=== PATIENT | female | born 1960 | race Hispanic/Latino ===

== ENCOUNTER 2016-10-04 17:48 | Emergency (ER) | payer OTHER ==
[2016-10-04 18:03] VITALS: BP 136/90; PULSE 79; RESP 16; TEMP 97.9; O2SAT 98; BMI 35.3
[2016-10-04 18:21] LABS: ADD MANUAL DIFF? NO
[2016-10-04 18:29] LABS: BASO # 0.03 K/mm3 (0.0-2.0); BASO % 0.5 % (0.0-3.0); EOS # 0.3 (0.0-0.7); EOS % 4.7 % (1.5-5.0); GRAN # 2.47 (1.4-6.5); GRAN % 41.3 % (50.0-68.0); HEMATOCRIT 42.2 % (36.0-48.0); LYMPH # 2.5 (1.2-3.4); LYMPH % 41.8 % (22.0-35.0); MEAN CELL VOLUME 84.9 fL (80.0-105.0); MEAN CORPUSCULAR HGB CONC 35.3 g/dl (31.0-37.0); MEAN PLATELET VOLUME 10.5 fl (7.0-11.0); MONO # 0.7 (0.1-0.6); MONO % 11.7 % (1.0-6.0); PLATELET COUNT 243 10^3/uL (120.0-450.0); RED CELL DISTRIBUTION WIDTH 12.5 % (11.5-14.5)
[2016-10-04 18:34] LABS: ALB/GLOB RATIO 1.3 (1.1-1.8); ALKALINE PHOSPHATASE 79 U/L (38-133); ALT/SGPT 150 U/L (7-56); AST/SGOT 77 U/L (15-39); BILIRUBIN,TOTAL 1.3 mg/dL (0.2-1.3); BLOOD UREA NITROGEN 17 mg/dL (7-21); CALCIUM 10.3 mg/dL (8.4-10.5); CARBON DIOXIDE 30 mmol/L (21-33); CHLORIDE 99 mmol/L (98-107); GFR AFRICAN-AMERICAN > 60; GLUCOSE,RANDOM 106 mg/dL (70-110); POTASSIUM 3.6 mmol/L (3.6-5.0); SODIUM 141 mmol/L (132-148); TOTAL PROTEIN 8.6 g/dL (5.8-8.3)
--- NOTE | 2016-10-04 18:36 | ED PDOC ---
Arrival/HPI - General Historian: Patient - History of Present Illness Time/Duration: > month Symptom Onset: Gradual Symptom Course: Unchanged Quality: Aching Severity Level: 5 Activities at Onset: Rest Context: Home - General Chief Complaint: Back Pain Time Seen by Provider: 10/04/16 18:02 - History of Present Illness Narrative History of Present Illness (Text): 10/04/16 18:31 This is a 56Y F with PMH HTN, HLD, and asthma here for R sided mid-back pain x 1 month. The patient saw her PMD for this pain a few weeks ago. She was given Tramadol and Soma without any relief. The patient reports the Soma makes her feel "loopy" so she takes it sparingly. The pain has not been getting better. It is worse with movement and does not radiate. She denies any trauma, abdominal pain, n/v/d, CP, SOB, numbness/tingling, dysuria or hematuria. Patient decided to come to ED because she was worried because the pain has not gone away. She report she is able to still play soft ball regardless of the pain. She also said she has been very stressed out this past year because her brother committed suicide last year and her sister is now having medical problems as well. She has been depressed but denies suicidal or homicidal ideation. (Rebecca Franks) Past Medical History - Provider Review Nursing Documentation Reviewed: Yes - Past History Past History: Non-Contributing - Infectious Disease Hx of Infectious Diseases: None - Tetanus Immunization Tetanus Immunization: Unknown - Reproductive Menopause: Yes - Cardiac Hx Cardiac Disorders: Yes Hx Hypertension: Yes Other/Comment: Cardiac Cath - Pulmonary Hx Respiratory Disorders: Yes Hx Asthma: Yes Hx Tuberculosis: Yes (1985) - Neurological Hx Neurological Disorder: No - HEENT Hx HEENT Disorder: No - Renal Hx Renal Disorder: No - Endocrine/Metabolic Hx Endocrine Disorders: No - Hematological/Oncological Hx Blood Disorders: No - Integumentary Hx Dermatological Disorder: No - Musculoskeletal/Rheumatological Hx Musculoskeletal Disorders: Yes Hx Back Pain: Yes - Gastrointestinal Hx Gastrointestinal Disorders: Yes Hx Gastroesophageal Reflux: Yes Hx Irritable Bowel: Yes - Genitourinary/Gynecological Hx Genitourinary Disorders: No - Psychiatric Hx Psychophysiologic Disorder: No Hx Substance Use: Yes (QUIT 26 YEARS AGO) - Past Surgical History Past Surgical History: No Previous - Surgical History Hx Musculoskeletal Surgery: Yes (right elbow) Other/Comment: WISDOM TEETH EXTRACTION - Anesthesia Hx Anesthesia: No Hx Anesthesia Reactions: Yes (NAUSEA, HALLUCINATIONS) Hx Malignant Hyperthermia: No - Suicidal Assessment Feels Threatened In Home Enviroment: No Family/Social History - Physician Review Nursing Documentation Reviewed: Yes Family/Social History: CVA/TIA Smoking Status: Former Smoker Hx Alcohol Use: Yes (QUIT 26 YEARS AGO) Hx Substance Use: Yes (QUIT 26 YEARS AGO) Allergies/Home Meds Allergies/Adverse Reactions: Allergies naproxen Allergy (Verified 10/04/16 18:06) ANGIOEDEMA BANANAS Allergy (Uncoded 10/04/16 18:06) PAIN Home Medications: Home Meds Medication Instructions Recorded Confirmed Furosemide [Lasix] 40 mg PO DAILY 11/05/14 10/04/16 Losartan/Hydrochlorothiazide 1 tab PO DAILY 03/26/16 10/04/16 [Losartan-Hctz 50-12.5 mg Tab] [id number] Ethyl Esters 1 GM 1 gm PO BID 03/26/16 10/04/16 [Lovaza] Review of Systems - Physician Review All systems were reviewed & negative as marked: Yes - Review of Systems Constitutional: Normal. absent: Fatigue, Fevers, Night Sweats Respiratory: Normal. absent: SOB, Cough Cardiovascular: Normal. absent: Chest Pain, Palpitations Gastrointestinal: Normal. absent: Abdominal Pain, Constipation, Diarrhea, Nausea, Vomiting Genitourinary Female: Normal. absent: Dysuria, Frequency Musculoskeletal: Myalgias Skin: Normal. absent: Rash, Pruritis Neurological: Normal. absent: Headache, Dizziness Endocrine: Normal. absent: Diaphoresis Hemo/Lymphatic: Normal. absent: Adenopathy, Easy Bleeding Psychiatric: Depression. absent: Anxiety, Suicidal Ideation Physical Exam Vital Signs Reviewed: Yes Temperature: Afebrile Blood Pressure: Normal Pulse: Regular Respiratory Rate: Normal Appearance: Positive for: Well-Appearing, Non-Toxic, Comfortable Pain Distress: None Mental Status: Positive for: Alert and Oriented X 3 - Systems Exam Head: Present: Atraumatic, Normocephalic Mouth: Present: Moist Mucous Membranes Neck: Present: Normal Range of Motion Respiratory/Chest: Present: Clear to Auscultation, Good Air Exchange. No: Respiratory Distress, Accessory Muscle Use Cardiovascular: Present: Regular Rate and Rhythm, Normal S1, S2. No: Murmurs Abdomen: Present: Normal Bowel Sounds. No: Tenderness, Distention, Peritoneal Signs Back: Present: Normal Inspection Upper Extremity: Present: Normal Inspection. No: Cyanosis, Edema Lower Extremity: Present: Normal Inspection, Tenderness (R lateral midthoracic region). No: Edema Neurological: Present: GCS=15, CN II-XII Intact, Speech Normal Skin: Present: Warm, Dry, Normal Color. No: Rashes Psychiatric: Present: Alert, Oriented x 3, Normal Insight, Normal Concentration Vital Signs Temp Pulse Resp BP Pulse Ox 10/04/16 18:02 97.9 F 79 16 136/90 98 Medical Decision Making Re-evaluation Time: 20:04 - Lab Interpretations I have reviewed the lab results: Yes Interpretation: Abnormal lab values (elevated LFTs) - RAD Interpretation Fitness Floor Attendant: ED Physician ED Course and Treatment: 10/04/16 18:39 Impression: This is a 56Y F with PMH HTN, HLD, and asthma here for R sided mid-back pain x 1 month. Plan: -- CBC, CMP, U/A -- R rib XR and Chest XR -- Reassess Prior Visits: Notes and results from previous visits were reviewed. Progress Note: Patient noted to have transaminitis. She has had this in the past and is aware of her elevated enzymes and was supposed to get an ultrasound of her liver, but never got around to it. I suggest that she follows up with her PMD to repeat her lab values. Discharge Instructions: Re-evaluation. Patient feels better. Discussed results and plan with patient who expresses understanding. All questions answered and there is agreement with the plan to discharge home with instructions. Patient stable for discharge. Return if symptoms persist or worsen. (Rebecca Franks) 10/04/16 20:05 Seen and examined with the resident. Our history and physical exam reveals a woman who complains of approximately a one-month history of right-sided middle back pain. She denies any injury or trauma. She's been seen by her PMD and given prescription for Ultram and muscle relaxers but is no better. No dysuria frequency urgency or hematuria. No abdominal pain nausea vomiting or diarrhea. Her exam has some point tenderness in the right posterior ribs. No rashes. ( Remi Sanchez) - Lab Interpretations Lab Results: 10/04/16 18:16 10/04/16 18:16 Lab Results 10/04/16 18:16: Urine Color Yellow, Urine Appearance Clear, Urine pH 7.0, Ur Specific [place] 1.010, Urine Protein Negative, Urine Glucose (UA) Negative, Urine Ketones Negative, Urine Blood Negative, Urine Nitrate Negative, Urine Bilirubin Negative, Urine Urobilinogen 0.2, Ur Leukocyte Esterase Negative 10/04/16 18:16: Sodium 141, Potassium 3.6, Chloride 99, Carbon Dioxide 30, Anion Gap 16, BUN 17, Creatinine 0.8, Est GFR ( Amer) > 60, Est GFR (Non- Af Amer) > 60, Random Glucose 106, Calcium 10.3, Total Bilirubin 1.3, AST 77 H, ALT 150 H, Alkaline Phosphatase 79, Total Protein 8.6 H, Albumin 4.8, Globulin 3.8, Albumin/Globulin Ratio 1.3 10/04/16 18:16: WBC 6.0 D, RBC 4.97, Hgb 14.9, Hct 42.2, MCV 84.9, MCH 30.0, MCHC 35.3, RDW 12.5, Plt Count 243, MPV 10.5, Gran % 41.3 L, Lymph % (Auto) 41.8 H, [place] % (Auto) 11.7 H, Eos % (Auto) 4.7, Baso % (Auto) 0.5, Gran # 2.47, Lymph # 2.5, [place] # 0.7 H, Eos # 0.3, Baso # 0.03 - RAD Interpretation Narrative RAD Interpretations (Text): 10/04/16 20:04 R rib XR showed no evidence of rib fracture. CXR showed no active disease. ( Rebecca Franks) Radiology Orders: 10/04/16 18:17 RIBS RIGHT & PA CHEST [RAD] Stat Disposition/Present on Arrival - Present on Arrival Any Indicators Present on Arrival: No History of DVT/PE: No History of Uncontrolled Diabetes: No Urinary Catheter: No History of Decub. Ulcer: No History Surgical Site Infection Following: None - Disposition Have Diagnosis and Disposition been Completed?: Yes Disposition Time: 19:50 Patient Plan: Discharge - Disposition Diagnosis: Costochondritis Disposition: HOME/ ROUTINE Patient Problems: Current Active Problems Problem Status Onset Costochondritis Acute Condition: GOOD Discharge Instructions (ExitCare): Costochondritis (ED) Print Language: LAO Additional Instructions: Ms. Clemens, thank you for letting us take care of you today. Your provider was Dr. Franks You were treated for back pain. The emergency medical care you received today was directed at your acute symptoms. If you were prescribed any medication, please fill it and take as directed. It may take several days for your symptoms to resolve. Return to the Emergency Department if your symptoms worsen, do not improve, or if you have any other problems. Please contact your doctor or call one of the physicians/clinics you have been referred to that are listed on the Patient Visit Information form that is included in your discharge packet. Bring any paperwork you were given at discharge with you along with any medications you are taking to your follow up visit. Our treatment cannot replace ongoing medical care by a primary care provider (PCP) outside of the emergency department. Thank you for allowing the [facility] team to be part of your care today. If you had an X-Ray or CT scan: A Radiologist will review the ED reading if any change in treatment is needed we will contact you. If you had a blood, urine, or wound culture: It will take several days for the results, if any change in treatment is needed we will contact you. Please follow up with Dr. Pratt for elevated liver enzymes. Prescriptions: Chlorzoxazone [Lorzone] 375 mg PO TID PRN #15 tablet PRN Reason: Pain, Moderate (4-7) Referrals: Charles Pratt MD [Primary Care Provider] - Follow up with primary
[2016-10-04 18:42] LABS: URINE BILIRUBIN NEGATIVE (NEGATIVE); URINE BLOOD NEGATIVE (NEGATIVE); URINE GLUCOSE (UA) NEGATIVE (NEGATIVE); URINE KETONE NEGATIVE (NEGATIVE); URINE LEUKOCYTE ESTERASE NEGATIVE Leu/uL (NEGATIVE); URINE PROTEIN NEGATIVE mg/dL (<30 mg/dL); URINE UROBILINOGEN 0.2 E.U./dL (<1 E.U./dL)
[2016-10-04 18:59] LABS: URINE APPEARANCE CLEAR (CLEAR); URINE COLOR YELLOW (YELLOW)
--- NOTE | 2016-10-05 08:45 | RAD ---
PROCEDURE: Radiographs of the Chest and Right Ribs. HISTORY: R sided pain COMPARISON: Chest x-ray performed 03/04/15 TECHNIQUE: Frontal radiograph of the chest and multiple oblique radiographs of the right ribs were obtained. FINDINGS: Examination limited by habitus. RIGHT RIBS: No acute displaced fracture identified. LUNGS: No focal consolidation. 3 mm right upper lobe nodular density. Please note that chest x-ray has limited sensitivity for the detection of pulmonary masses. PLEURA: No significant pleural effusion. No definite pneumothorax. CARDIOVASCULAR: Heart size appears within normal limits. OTHER FINDINGS: None. IMPRESSION: 3 mm right upper lobe nodular density, possibly granuloma. No appreciable displaced right rib fracture.
== END 2016-10-04 20:03 | disposition home or self-care (01) ==
LOC: ED 17:48
DX: M94.0 Chondrocostal junction syndrome [Tietze] (principal); I10 Essential (primary) hypertension; Z87.891 Personal history of nicotine dependence

== ENCOUNTER 2016-10-08 17:57 | Emergency (ER) | payer OTHER ==
[2016-10-08 18:15] VITALS: RESP 18; TEMP 98.2; O2SAT 98; BMI 34.9
[2016-10-08] MEDS ORDERED: Sodium Chloride 0.9% 1,000 ML IV STA (18:24)
[2016-10-08] MEDS ORDERED: diaZEpam 10 mg/2 ml Inj IVP ONE (18:24)
[2016-10-08] MEDS ORDERED: Lidocaine 5% Patch TD STA (18:24)
--- NOTE | 2016-10-08 18:29 | ED PDOC ---
Arrival/HPI - General Chief Complaint: Back Pain Time Seen by Provider: 10/08/16 17:59 Historian: Patient - History of Present Illness Narrative History of Present Illness (Text): 10/08/16 18:41 56 y/o female, pmh including htn/hyperlipidemia/asthma, allergic to naproxen only but not to any other NSAIDS, c/o rt. mid and lower back pain x 1 month with no fall or trauma. Aching pain, spasm sensation, aggravated by movement and sitting, no urinary symptoms, no coughing, no fever or chills. Past Medical History - Provider Review Nursing Documentation Reviewed: Yes - Past History Past History: Non-Contributing - Infectious Disease Hx of Infectious Diseases: None - Tetanus Immunization Tetanus Immunization: Unknown - Reproductive Menopause: Yes - Cardiac Hx Cardiac Disorders: Yes Hx Hypertension: Yes Other/Comment: Cardiac Cath - Pulmonary Hx Respiratory Disorders: Yes Hx Asthma: Yes Hx Tuberculosis: Yes (1985) - Neurological Hx Neurological Disorder: No - HEENT Hx HEENT Disorder: No - Renal Hx Renal Disorder: No - Endocrine/Metabolic Hx Endocrine Disorders: No - Hematological/Oncological Hx Blood Disorders: No - Integumentary Hx Dermatological Disorder: No - Musculoskeletal/Rheumatological Hx Musculoskeletal Disorders: Yes Hx Back Pain: Yes - Gastrointestinal Hx Gastrointestinal Disorders: Yes Hx Gastroesophageal Reflux: Yes Hx Irritable Bowel: Yes - Genitourinary/Gynecological Hx Genitourinary Disorders: No - Psychiatric Hx Psychophysiologic Disorder: No Hx Substance Use: Yes (QUIT 26 YEARS AGO) - Past Surgical History Past Surgical History: No Previous - Surgical History Hx Musculoskeletal Surgery: Yes (right elbow) Other/Comment: WISDOM TEETH EXTRACTION - Anesthesia Hx Anesthesia: No Hx Anesthesia Reactions: Yes (NAUSEA, HALLUCINATIONS) Hx Malignant Hyperthermia: No - Suicidal Assessment Feels Threatened In Home Enviroment: No Family/Social History - Physician Review Nursing Documentation Reviewed: Yes Family/Social History: Unknown Family HX Smoking Status: Former Smoker Hx Alcohol Use: Yes (QUIT 26 YEARS AGO) Hx Substance Use: Yes (QUIT 26 YEARS AGO) Allergies/Home Meds Allergies/Adverse Reactions: Allergies naproxen Allergy (Verified 10/08/16 18:17) ANGIOEDEMA BANANAS Allergy (Uncoded 10/08/16 18:17) PAIN Home Medications: Home Meds Medication Instructions Recorded Confirmed Furosemide [Lasix] 40 mg PO DAILY 11/05/14 10/08/16 Losartan/Hydrochlorothiazide 1 tab PO DAILY 03/26/16 10/08/16 [Losartan-Hctz 50-12.5 mg Tab] [id number] Ethyl Esters 1 GM 1 gm PO BID 03/26/16 10/08/16 [Lovaza] traMADol [Ultram] 50 mg PO PRN PRN 10/08/16 10/08/16 Review of Systems - Review of Systems Constitutional: absent: Fatigue, Fevers Eyes: absent: Vision Changes ENT: absent: Hearing Changes Respiratory: absent: SOB, Cough Cardiovascular: absent: Chest Pain Gastrointestinal: absent: Abdominal Pain, Nausea, Vomiting Genitourinary Female: absent: Dysuria, Frequency, Hematuria Musculoskeletal: Back Pain, Myalgias. absent: Arthralgias, Neck Pain, Joint Swelling Skin: absent: Rash, Pruritis, Skin Lesions Neurological: absent: Headache, Dizziness Psychiatric: absent: Anxiety, Depression, Suicidal Ideation Physical Exam Vital Signs Reviewed: Yes Vital Signs Temp Pulse Resp BP Pulse Ox 10/08/16 18:14 98.2 F 90 18 118/85 98 Temperature: Afebrile Blood Pressure: Normal Pulse: Regular Respiratory Rate: Normal Appearance: Positive for: Well-Appearing, Non-Toxic Pain Distress: Severe Mental Status: Positive for: Alert and Oriented X 3 - Systems Exam Head: Present: Atraumatic, Normocephalic Pupils: Present: PERRL Extroacular Muscles: Present: EOMI Conjunctiva: Present: Normal Mouth: Present: Moist Mucous Membranes Neck: Present: Normal Range of Motion Respiratory/Chest: Present: Clear to Auscultation, Good Air Exchange. No: Respiratory Distress, Accessory Muscle Use Cardiovascular: Present: Regular Rate and Rhythm, Normal S1, S2. No: Murmurs Abdomen: Present: Normal Bowel Sounds. No: Tenderness, Distention, Peritoneal Signs, Rebound, Guarding Back: Present: Normal Inspection, Midline Tenderness, Paraspinal Tenderness, Other (+ttp on the midline of the mid lower thoracic and upper/mid lumbar spine , no rash, no vesicular lesion, no cva tenderness. ). No: CVA Tenderness, Pain with Leg Raise, Decubitus Ulcer Upper Extremity: Present: Normal Inspection. No: Cyanosis, Edema Lower Extremity: Present: Normal Inspection. No: Edema Neurological: Present: GCS=15, Speech Normal, Motor Func Grossly Intact, Gait Normal, Memory Normal Skin: Present: Warm, Dry, Normal Color. No: Rashes Psychiatric: Present: Alert, Oriented x 3, Normal Insight, Normal Concentration Medical Decision Making ED Course and Treatment: 10/08/16 18:44 -labs/ua/ck -CT thoracic and lumbar -IVF/toradol/valium/lidoderm patch -Observe and reassess 10/08/16 21:32 -UA show +UTI, Keflex 500mg po ordered. -Labs are non-significant except K+ 3.2 -CT Thoracic and Lumbar results reviewed. -Patient feeling much better now, decadron 8mg IV ordered. -Case discussed with Dr. Stewart, he agreed on the treatment plan and dispo plan. -Discharge home with motrin, flexeril, lidoderm patch, heat compression, follow up with your own pmd and neurologist/neurosurgery within 2 days, return to the ER for any new or worsening signs or symptoms. - Lab Interpretations Lab Results: 10/08/16 19:35 10/08/16 19:35 Lab Results 10/08/16 19:35: Sodium 144, Potassium 3.2 L, Chloride 101, Carbon Dioxide 29, Anion Gap 17, BUN 21, Creatinine 0.8, Est GFR ( Amer) > 60, Est GFR (Non- Af Amer) > 60, Random Glucose 118 H, Calcium 9.7, Total Bilirubin 1.0, AST 67 H , ALT 132 H, Alkaline Phosphatase 78, Total Creatine Kinase 233 H, CK-MB (CK-2) 2.2, CK-MB (CK-2) % Cancelled, Total Protein 8.0, Albumin 4.8, Globulin 3.2, Albumin/Globulin Ratio 1.5 10/08/16 19:35: Urine Color Yellow, Urine Appearance Clear, Urine pH 6.0, Ur Specific [place] 1.020, Urine Protein Negative, Urine Glucose (UA) Negative, Urine Ketones Negative, Urine Blood Trace-intact H, Urine Nitrate Negative, Urine Bilirubin Negative, Urine Urobilinogen 0.2, Ur Leukocyte Esterase Trace H , Urine RBC 2 - 5, Urine WBC 5 - 10, Ur Epithelial Cells 6 - 8, Urine Bacteria Rare 10/08/16 19:35: WBC 6.4, RBC 5.02, Hgb 15.2, Hct 42.9, MCV 85.5, MCH 30.3, MCHC 35.4, RDW 12.5, Plt Count 233, MPV 10.2, Gran % 43.1 L, Lymph % (Auto) 39.2 H, [place] % (Auto) 10.5 H, Eos % (Auto) 6.6 H, Baso % (Auto) 0.6, Gran # 2.74, Lymph # 2.5, [place] # 0.7 H, Eos # 0.4, Baso # 0.04 I have reviewed the lab results: Yes Interpretation: Abnormal lab values (K+ 3.2, +UTI) - RAD Interpretation Radiology Orders: 10/08/16 18:24 LUMBAR SPINE W/O CONTRAST [CT] Stat THORACIC SPINE W/O CONT [CT] Stat CT Thoracic Spine: FINDINGS: Vertebrae: No acute fracture. Discs/spinal canal/neural foramina: Disc degenerative changes are noted at multiple levels. No spinal canal stenosis. Soft tissues: Unremarkable. Lungs: Pleural based density is noted in the right upper lung. Calcified nodule is noted in the right upper lobe. IMPRESSION: No acute findings. Thank you for allowing us to participate in the care of your patient. Dictated and Authenticated by: Elisabeth Tomas MD 10/08/2016 9:05 PM Eastern Time ([place] & [place]) CT Lumbar: FINDINGS: Vertebrae: Straightening of lumbar lordosis. No acute fracture. Discs/spinal canal/neural foramina: There is diffuse disc bulge noted at L4-L5 level causing impression on the ventral aspect of the sac and there is relative mild central canal stenosis. At L3-L4 level there is diffuse bulge with neural foramina narrowing right greater than left noted. At L5 S1 level mild disc bulge. At L2-L3 level there is diffuse disc bulge with right foraminal protrusion. The exiting nerve root on the right is questionably in close proximity to the protrusion. Neurology consult is advised. Soft tissues: Unremarkable. IMPRESSION: At L2-L3 level there is diffuse disc bulge with small right foraminal protrusion. The exiting nerve root on the right is questionably in close proximity to the protrusion. Neurology consult is advised. There is diffuse disc bulge noted at L4-L5 level causing impression on the ventral aspect of the sac and there is relative mild central canal stenosis. At L3-L4 level there is diffuse bulge with neural foramina narrowing right greater than left noted. At L5 S1 level mild disc bulge. Thank you for allowing us to participate in the care of your patient. Dictated and Authenticated by: Elisabeth Tomas MD 10/08/2016 9:01 PM Eastern Time ([place]) Manager Auto: Radiologist - Medication Orders Current Medication Orders: Discontinued Medications Cephalexin Monohydrate (Keflex) 500 mg PO STAT STA PRN Reason: Protocol Stop: 10/08/16 21:23 Dexamethasone (Decadron Inj) 8 mg IVP STAT STA Stop: 10/08/16 21:33 Diazepam (Valium) 7.5 mg IVP ONCE ONE PRN Reason: Protocol Stop: 10/08/16 18:25 Last Admin: 10/08/16 19:38 Dose: 7.5 mg Sodium Chloride (Sodium Chloride 0.9%) 1,000 mls @ 999 mls/hr IV .Q1H1M STA Stop: 10/08/16 19:24 Last Admin: 10/08/16 19:41 Dose: 999 mls/hr Ketorolac Tromethamine (Toradol) 30 mg IVP STAT STA Stop: 10/08/16 18:25 Last Admin: 10/08/16 19:40 Dose: 30 mg Lidocaine (Lidoderm) 1 ea TD STAT STA Stop: 10/08/16 18:25 Last Admin: 10/08/16 19:39 Dose: 1 ea Potassium Chloride (K-Dur 20 Meq Er Tab) 20 meq PO STAT STA Stop: 10/08/16 20:34 - PA / BUTT MAKER / Resident Statement /DO has reviewed & agrees with the documentation as recorded. Disposition/Present on Arrival - Present on Arrival Any Indicators Present on Arrival: No History of DVT/PE: No History of Uncontrolled Diabetes: No Urinary Catheter: No History of Decub. Ulcer: No History Surgical Site Infection Following: None - Disposition Have Diagnosis and Disposition been Completed?: Yes Diagnosis: Protrusion of lumbar intervertebral disc, Bulging lumbar disc, Degenerative joint disease, UTI (urinary tract infection), Hypokalemia Disposition: HOME/ ROUTINE Disposition Time: 21:36 Patient Plan: Discharge Patient Problems: Current Active Problems Problem Status Onset Protrusion of lumbar intervertebral disc Acute Bulging lumbar disc Acute Degenerative joint disease Acute UTI (urinary tract infection) Acute Hypokalemia Acute Condition: IMPROVED Additional Instructions: Discharge home with keflex, motrin, flexeril, lidoderm patch, heat compression, follow up with your own pmd and neurologist/neurosurgery within 2 days, return to the ER for any new or worsening signs or symptoms. Prescriptions: Cephalexin [Keflex] 500 mg PO QID #28 capsule Cyclobenzaprine [Cyclobenzaprine HCl] 10 mg PO TID #21 tab Ibuprofen [Motrin] 600 mg PO QID PRN #28 tab PRN Reason: Other Lidocaine 5% [Lidoderm] 1 patch TOP DAILY #14 patch Referrals: Charles Pratt MD [Primary Care Provider] - Follow up with primary Ezequiel Donaldson MD [Staff Provider] - Follow up with primary Gabriel Swenson MD [Staff Provider] - Follow up with primary Forms: WORK NOTE
[2016-10-08 19:47] LABS: ADD MANUAL DIFF? NO
[2016-10-08 19:55] LABS: BASO # 0.04 K/mm3 (0.0-2.0); BASO % 0.6 % (0.0-3.0); EOS # 0.4 (0.0-0.7); EOS % 6.6 % (1.5-5.0); GRAN # 2.74 (1.4-6.5); GRAN % 43.1 % (50.0-68.0); HEMATOCRIT 42.9 % (36.0-48.0); LYMPH # 2.5 (1.2-3.4); LYMPH % 39.2 % (22.0-35.0); MEAN CELL VOLUME 85.5 fL (80.0-105.0); MEAN CORPUSCULAR HEMOGLOBIN 30.3 pg (25.0-35.0); MEAN CORPUSCULAR HGB CONC 35.4 g/dl (31.0-37.0); MEAN PLATELET VOLUME 10.2 fl (7.0-11.0); MONO # 0.7 (0.1-0.6); MONO % 10.5 % (1.0-6.0); PLATELET COUNT 233 10^3/uL (120.0-450.0); RED CELL DISTRIBUTION WIDTH 12.5 % (11.5-14.5); URINE BILIRUBIN NEGATIVE (NEGATIVE); URINE BLOOD TRACE-INTACT (NEGATIVE); URINE GLUCOSE (UA) NEGATIVE (NEGATIVE); URINE KETONE NEGATIVE (NEGATIVE); URINE LEUKOCYTE ESTERASE TRACE Leu/uL (NEGATIVE); URINE PROTEIN NEGATIVE mg/dL (<30 mg/dL); URINE UROBILINOGEN 0.2 E.U./dL (<1 E.U./dL); WHITE BLOOD COUNT 6.4 10^3/ul (4.5-11.0)
[2016-10-08 19:58] LABS: URINE APPEARANCE CLEAR (CLEAR); URINE COLOR YELLOW (YELLOW)
[2016-10-08 19:59] LABS: ALB/GLOB RATIO 1.5 (1.1-1.8); ALKALINE PHOSPHATASE 78 U/L (38-133); ALT/SGPT 132 U/L (7-56); AST/SGOT 67 U/L (15-39); BLOOD UREA NITROGEN 21 mg/dL (7-21); CALCIUM 9.7 mg/dL (8.4-10.5); CARBON DIOXIDE 29 mmol/L (21-33); CHLORIDE 101 mmol/L (98-107); GFR AFRICAN-AMERICAN > 60; GLUCOSE,RANDOM 118 mg/dL (70-110); POTASSIUM 3.2 mmol/L (3.6-5.0); SODIUM 144 mmol/L (132-148)
[2016-10-08 20:13] LABS: URINE BACTERIA RARE (NEG)
[2016-10-08] MEDS ORDERED: Potassium Chloride 20 mEq ER Tab PO STA (20:33)
[2016-10-08 22:59] VITALS: BP 115/63; PULSE 73
--- NOTE | 2016-10-09 09:11 | CT ---
PROCEDURE: CT Lumbar Spine without contrast HISTORY: Right lower back pain COMPARISON: None. TECHNIQUE: Axial computed tomography images were obtained of the lumbar spine without the use of intravenous contrast. Coronal and sagittal reformatted images were created and reviewed. Radiation dose: Total exam DLP = 74.42 mGy-cm. This CT exam was performed using one or more of the following dose reduction techniques: Automated exposure control, adjustment of the mA and/or kV according to patient size, and/or use of iterative reconstruction technique. FINDINGS: VERTEBRAE: There is normal alignment of the lumbar vertebral bodies. Lumbar lordosis is maintained. Vertebral bodies are normal in height. There is no acute fracture, spondylolysis or spondylolisthesis. Bone mineralization is normal. Evaluation of the conus medullaris and nerve roots of cauda equina is limited on noncontrast CT examination. The spinal canal is grossly patent. DISCS/SPINAL CANAL/NEURAL FORAMINA: L1-2: No large disc herniation, neural foraminal or spinal canal stenosis. L2-3: Diffuse posterior disc bulge with superimposed right foraminal and far lateral disc protrusions which abuts the exiting right L2 nerve root. Moderate right and mild left neural foraminal stenosis. No central spinal canal stenosis. L3-4: Diffuse posterior disc bulge and mild bilateral facet arthropathy without central spinal canal stenosis. Moderate right and mild left neural foraminal stenosis. L4-5: Diffuse posterior disc bulge in conjunction with mild bilateral facet arthropathy result in mild neural foraminal stenosis. No central spinal canal stenosis. L5-S1: Diffuse posterior disc bulge and mild facet arthropathy without neural foraminal or spinal canal stenosis.. PARASPINAL SOFT TISSUES: Normal. OTHER FINDINGS: None. IMPRESSION: 1. No acute fracture, spondylolysis or spondylolisthesis. 2. Mild multilevel degenerative disc disease, worse at L2-3 with a right foraminal and far lateral disc protrusions which abuts the exiting right L2 nerve root. No central spinal canal stenosis. Additional comments as described above. A preliminary report was provided by [employer].
--- NOTE | 2016-10-09 09:19 | CT ---
PROCEDURE: CT Thoracic Spine without contrast HISTORY: Right-sided back pain COMPARISON: None. TECHNIQUE: Axial computed tomography images were obtained of the thoracic spine without intravenous contrast. Coronal and sagittal reformatted images were created and reviewed. Radiation dose: Total exam DLP = 1090.34 mGy-cm. This CT exam was performed using one or more of the following dose reduction techniques: Automated exposure control, adjustment of the mA and/or kV according to patient size, and/or use of iterative reconstruction technique. FINDINGS: VERTEBRAE: There is normal alignment of the thoracic vertebral bodies. Thoracic kyphosis is maintained. Vertebral bodies are normal in height. There is no acute fracture or bone destruction. Bone mineralization is normal. DISCS/SPINAL CANAL/NEURAL FORAMINA: Evaluation of the thoracic cord and discs is limited on noncontrast CT examination. There is mild multilevel degenerative disc disease with anterior osteophytes, reduced disc heights in the lower thoracic spine and mild lower level facet arthropathy without spinal canal or neural foraminal stenosis. There is ligamentum flavum calcification in the mid thoracic spine indenting the dorsal thecal sac. PARASPINAL SOFT TISSUES: The paraspinous soft tissues are normal. OTHER FINDINGS: There is subsegmental atelectasis in the right upper lobe and dependent atelectasis in the posterior lungs. IMPRESSION: No acute fracture. Mild multilevel degenerative disc disease with calcification of ligamentum flavum in the mid thoracic spine. No significant spinal canal stenosis. A preliminary report was provided by [facility].
== END 2016-10-08 22:30 | disposition home or self-care (01) ==
LOC: ED 17:57
DX: M51.26 Other intervertebral disc displacement, lumbar region (principal); M47.896 Other spondylosis, lumbar region; N39.0 Urinary tract infection, site not specified; E87.6 Hypokalemia; I10 Essential (primary) hypertension; E78.5 Hyperlipidemia, unspecified; Z87.891 Personal history of nicotine dependence
CPT/HCPCS: 72128; 72131; 80053; 81001; 82550; 82553; 85025; 87086; 96374; 96375; 99283; J1100; J1885; J3360; J7040